=== PATIENT | female | born 2005 | race Caucasian/White ===

== ENCOUNTER 2024-12-01 15:45 | Outpatient (AMB) | payer BC, SELFPAY ==
--- NOTE | 2024-12-01 15:47 | MHC.PC.OV ---
Vital Signs 12/01/24 15:50 Height 4 ft 10.5 in Weight 45.359 kg BMI 20.5 BP 130/88 Respiration 14 Pulse 76 Pulse Source Pulse Oximeter Temp 98.4 F Temp Source Temporal Artery Scan Pulse Oximetry (%) 99 Oxygen Delivery Method Room Air Intake Visit Reasons: Physical Hand Roller Required: No Accompanied by: Self / Same As Patient Allergies No Known Allergies Allergy (Verified 12/01/24 15:50) Medication List - Last Reconciled 12/01/24 by LAUREANO Powers albuterol sulfate 90 mcg/actuation 2 puffs inhalation QID PRN montelukast 10 mg PO DAILY HPI HPI Comments History of Present Illness Details 19-year-old female with history of mild intermittent asthma presents to the office today for annual physical exam and to establish care. She has a history of asthma which is overall well-controlled except in the last few weeks when she has been out of her Singulair. She has needed to use her albuterol inhaler with increased frequency as a result with good effect however. She is currently living with her parents, [place] in [place], as well as her sister and brother. She graduated from high school in 2021 and is currently looking to find her 1st job, hopefully at a local grocery store. She does not smoke cigarettes, drink alcohol, or use any illicit substances or marijuana. She states she does follow a healthy diet and exercises regularly. She does visit the dentist annually and wear sun protection. She has not yet been to the eye doctor but denies any visual changes. Reviewed past medical, social, surgical, family history. Concerns: None Health maintenance: Has never been to corporate services manager ROS: General: No fevers, malaise, unintentional weight loss HEENT: No blurred vision, diplopia. No sore throat, nasal congestion, rhinorrhea, sinus pain, ear pain Neck - no adenopathy Cardiovascular: No chest pain, palpitations, or leg edema Respiratory: No shortness of breath, wheezing, cough GI: No abdominal pain, nausea, vomiting, diarrhea, constipation, melena, hematochezia : No dysuria, hematuria, increased urinary frequency, decreased urinary output [employer]PERVIS[employer] C[employer] COMPLAINT SERVICE: No heavy menses or abnormal vaginal discharge MSK: No myalgia, back pain, arthralgias Neuro: No headaches, weakness, paresthesias Psych: no depression/anxiery. No AH/VH. No SI/HI Skin: No rashes or lesions EXAM: Constitutional - Awake and Alert, No apparent distress Eyes - PERRLA, EOMI. Anicteric Nose- septum midline, nares clear, no sinus tenderness Mouth/throat- mucosa moist, tongue and uvula midline, no erythema/edema or tonsillar adenopathy. Tonsil stones noted Neck-trachea midline, thyroid symmetric without palpable nodules, no adenopathy Cardiovascular - S1S2, RRR, No edema Respiratory - Normal lung expansion, Normal respiratory effort, No respiratory distress, CTA bilaterally Gastrointestinal - NT / ND; +BS; No rebound or guarding - No CVA tenderness Extremities - no calf tenderness bilaterally, no swelling Musculoskeletal - Normal inspection, normal ROM Skin - Warm/Dry Neurological - Alert & oriented x3, CN II-XII in tact, 5/5 strength BUE and BLE Psychological - Appropriate affect [facility] Medical History (Updated 12/01/24 @ 15:56 by LAUREANO Powers) Asthma Surgical History (Updated 12/01/24 @ 15:56 by LAUREANO Powers) No pertinent past surgical history Social History (Updated 12/01/24 @ 15:57 by LAUREANO Powers) Alcohol intake: never Patient Tobacco Use Status: Never used Tobacco Use of substances other than those prescribed or required for medical reasons: No Questionnaire PHQ-9 Over the last 2 weeks, how often have you been bothered by any of the following problems? 1. Little interest or pleasure in doing things: not at all 2. Feeling down, depressed, or hopeless: not at all 3. Trouble falling or staying asleep, or sleeping too much: several days 4. Feeling tired or having little energy: not at all 5. Poor appetite or overeating: not at all 6. Feeling bad about yourself - or that you are a failure or have let yourself or your family down: not at all 7. Trouble concentrating on things, such as reading the newspaper or watching television: not at all 8. Moving or speaking so slowly that other people could have noticed. Or the opposite - being so fidgety or restless that you have been moving around a lot more than usual: not at all 9. Thoughts that you would be better off or of hurting yourself in some way: not at all Total score: 1 Source: Developed by Drs. Siddhartha Yeager, Tim Silveira and colleagues, with an educational newton from [employer]. Thrive Questionnaire Date Thrive assessed: 12/01/24 I am a: Patient What is your living situation today?: I have a steady place to live Within the past 12 months, did the food you bought not last and you didn't have the money to get more?: Never true Within the past 12 months, did you worry whether your food would run out before you got money to buy more?: Never true Do you have trouble paying for medicines?: No Do you have trouble getting transportation to medical appointments?: No Do you have trouble paying your heating and electricity bill?: No Do you have trouble taking care of your child, family member or friend?: No Do you have trouble with day-to-day activities such as bathing, preparing meals, shopping, managing finances, etc.?: No Are you currently unemployed and looking for a job?: No Are you interested in more education?: No Please select the resources that you would like help with: None THRIVE Score: 0 FRANC-7 AMB Questionnaire FRANC-7 Date FRANC - 7 assessed: 12/01/24 Feeling nervous, anxious, or on edge: 1 = Several days Not being able to stop or control worryin = Not at all Worrying too much about different things: 1 = Several days Trouble relaxin = Not at all Being so restless that it is hard to sit still: 0 = Not at all Becoming easily annoyed or irritable: 0 = Not at all Feeling afraid as if something awful might happen: 0 = Not at all Total FRANC-7 score (0-4 normal; 5-9 mild; 10-14 moderate; 15-21 severe): 2 Source: Developed by Drs. Siddhartha Yeager, Tim Silveira and colleagues, with an educational newton from [employer]. Physical exam (Primary Care) Vital Signs: Last Vital Signs Temp 98.4 F 12/01/24 15:50 Pulse 76 12/01/24 15:50 Resp 14 12/01/24 15:50 BP 130/88 12/01/24 15:50 Pulse Ox 99 12/01/24 15:50 Oxygen Delivery Method Room Air 12/01/24 15:50 BMI result Body Mass Index 20.5 Tobacco/Smoking Status: Tobacco use Status Patient Tobacco Use Status Never used Tobacco 12/01/24 15:57 PHQ-9: PHQ-9 Score PHQ-9: Total score 1 12/01/24 15:55 Thrive Assessment: Date of Thrive Assessment Date Thrive assessed 12/01/24 12/01/24 15:54 Coding Level of Care Code Est Pt Level 3 (48004) New Pt Prev Care 18-39yr(40242 Diagnoses Encounter for routine history and physical examination Z00.00 Asthma J45.909 Assessment & Plan Assessment & Plan (1) Encounter for routine history and physical examination: Code(s): Z00.00 - Encounter for general adult medical examination without abnormal findings Plan: 19-year-old female in good state of general health. Labs ordered as below. Referred to corporate services manager. (2) Asthma: Code(s): J45.909 - Unspecified asthma, uncomplicated Category: Medical Plan: \continue Singulair. Use albuterol inhaler only as needed for shortness of breaths and wheezing. Overall, stable when on maintenance medications Plan Routine screening labs as ordered below Referred for cervical cancer screening Continue following for annual skin exams and use sun protection Annual eye exams Annual dental exams Wear seat belt in car Recommend regular exercise and healthy diet Follow-up in 1 year Orders: Orders Basic Metabolic Panel Today Z00.00 - Encounter for general adult medical examination without abnormal findings Liver Panel Today Z00.00 - Encounter for general adult medical examination without abnormal findings TSH reflex Free T4 Today Z00.00 - Encounter for general adult medical examination without abnormal findings Vitamin D 25-OH Total Today Z00.00 - Encounter for general adult medical examination without abnormal findings Complete Blood Count Auto Diff Today Z00.00 - Encounter for general adult medical examination without abnormal findings Lipid Panel Today Z00.00 - Encounter for general adult medical examination without abnormal findings Referrals [employer] STORE MANAGER Referral Z00.00 - Encounter for general adult medical examination without abnormal findings, Z12.4 - Encounter for screening for malignant neoplasm of cervix Medications: New montelukast 10 mg PO DAILY 90 tabs 1RF albuterol sulfate 90 mcg/actuation 2 puffs inhalation QID PRN 8.5 grams 1RF shortness of breath or wheezing
[2024-12-01 15:50] VITALS: BP 130/88; PULSE 76; RESP 14; TEMP 36.9; O2SAT 99; BMI 20.5
== END 2024-12-01 16:08 | disposition home or self-care (01) ==
LOC: HO.HMCHD 15:45
PROVIDERS: PCP Internal Medicine; Visit Provider Physician Assistant
DX: Z00.00 Encounter for general adult medical examination without abnormal findings (principal); J45.909 Unspecified asthma, uncomplicated

== ENCOUNTER → 2024-12-01 15:45 | Outpatient (BNVA) | payer BC, SELFPAY | PROVIDERS: PCP Internal Medicine; Visit Provider Physician Assistant ==